=== PATIENT | male | born 1980 | race Caucasian/White ===

== ENCOUNTER 2023-05-04 18:16 | Emergency (ER) | payer SELFPAY ==
[~2023-05-04] VITALS: Ht 160 cm; Wt 68.0 kg
[2023-05-04 18:20] VITALS: BP_SYST 116; PULSE 106; RESP 20; TEMP 97.5; O2SAT 98
[2023-05-04 18:55] VITALS: BP_SYST 116; PULSE 106; RESP 20; TEMP 97.5; O2SAT 98
== END 2023-05-04 18:55 | disposition home or self-care (01) ==
LOC: SED 18:16
DX: Z02.89 Encounter for other administrative examinations (principal)
CPT/HCPCS: 99283